=== PATIENT | male | born 1955 | race Caucasian/White ===

== ENCOUNTER 2018-04-12 06:55 | Day surgery (SDC) | payer BC ==
[~2018-04-12] VITALS: Ht 182.9 cm; Wt 85.2 kg
[2018-04-12 07:20] VITALS: BP 159/99
[2018-04-12] MEDS ORDERED: normal saline 1000ml 1,000 ML IV PRN (07:20)
[2018-04-12] MEDS ORDERED: HYDR-565 PO (07:23)
[2018-04-12] MEDS ORDERED: ALBU18HF2 INH (07:23)
[2018-04-12] MEDS ORDERED: ACET-75 PO (07:23)
[2018-04-12] MEDS ORDERED: ATOR10TA PO (07:23)
[2018-04-12 07:56] LABS: BASOPHILS % (AUTO) 0.6 % (0-1); EOSINOPHILS # (AUTO) 0.2 X10'3 (0-0.9); EOSINOPHILS % (AUTO) 3.4 % (0-6); HEMATOCRIT 42.1 % (42.0-52.0); LYMPHOCYTES # (AUTO) 0.6 X10'3 (1.1-4.8); LYMPHOCYTES % (AUTO) 8.9 % (21-51); MEAN CORPUSCULAR HEMOGLOBIN 28.4 PG (27.0-31.0); MEAN CORPUSCULAR HGB CONC 33.2 % (33.0-36.5); MEAN CORPUSCULAR VOLUME 85.6 FL (78-98); MEAN PLATELET VOLUME 6.3 FL (7.4-10.4); MONOCYTES # (AUTO) 0.5 X10'3 (0-0.9); MONOCYTES % (AUTO) 7.3 % (2-12); NEUTROPHILS # (AUTO) 5.8 X10'3 (1.8-7.7); NEUTROPHILS % (AUTO) 79.8 % (42-75); PLATELET COUNT 337 X10'3 (140-440); RED BLOOD COUNT 4.91 X10'6 (4.70-6.10); RED CELL DISTRIBUTION WIDTH 19.9 % (11.5-14.5); WHITE BLOOD COUNT 7.3 X10'3 (4.5-11.0)
[2018-04-12 08:07] LABS: ALBUMIN 3.5 G/DL (3.4-5.0); ANION GAP 9 (8-16); BLOOD UREA NITROGEN 23 MG/DL (7-18); CALCIUM 9.2 MG/DL (8.5-10.1); CHLORIDE 106 MMOL/L (99-107); GLUCOSE 106 MG/DL (70-104); POTASSIUM 4.7 MMOL/L (3.5-5.1); SODIUM 140 MMOL/L (135-145); TOTAL CARBON DIOXIDE 24.8 MMOL/L (24-32); eGFR 75 ML/MIN
[2018-04-12 08:16] LABS: PROTHROMBIN TIME 10.7 SECONDS (9.0-12.0)
[2018-04-12 09:07] LABS: ANISOCYTOSIS 2+; PLATELET ESTIMATE NORMAL
== END 2018-04-12 09:00 | disposition home or self-care (01) ==
LOC: SSTAY O 06:55
PROVIDERS: ATTEND Radiology Diagnostic Radiology
DX: C34.12 Malignant neoplasm of upper lobe, left bronchus or lung (principal); Z53.8 Procedure and treatment not carried out for other reasons; E78.5 Hyperlipidemia, unspecified; J43.9 Emphysema, unspecified; Z88.0 Allergy status to penicillin; Z79.891 Long term (current) use of opiate analgesic; Z87.891 Personal history of nicotine dependence; Z72.89 Other problems related to lifestyle; Z90.49 Acquired absence of other specified parts of digestive tract; Z90.89 Acquired absence of other organs; Z98.890 Other specified postprocedural states; Z79.899 Other long term (current) drug therapy
CPT/HCPCS: 36415; 80048; 85025; 85610; J7030

== ENCOUNTER 2018-06-12 08:34 | Day surgery (SDC) | payer BC ==
[2018-06-12] VITALS (14 sets, daily range): BP systolic 141–170; BP diastolic 75–97
[~2018-06-12] VITALS: Ht 185.4 cm; Wt 92.9 kg
[~2018-06-12 08:34] MED LIST: ACET-75 PO; ALBU18HF2 INH; ATOR10TA PO; HYDR-4353 PO
[2018-06-12] MEDS ORDERED: normal saline 1000ml 1,000 ML IV PRN (08:55)
[2018-06-12] MEDS ORDERED: normal saline 1000ml 1,000 ML IV SCH (10:59)
[2018-06-12] MEDS ORDERED: midazolam 2 mg/2 ml injection IV PRN (11:00)
[2018-06-12] MEDS ORDERED: fentaNYL/PF 50MCG/1 ML 2ML syringe IV PRN (11:00)
[2018-06-12] MEDS ORDERED: fentaNYL/PF 50MCG/1 ML 2ML syringe ONE ×2 (11:02→12:48)
[2018-06-12] MEDS ORDERED: midazolam 2 mg/2 ml injection ONE ×2 (11:02→12:48)
[2018-06-12 11:18] LABS: BASOPHILS % (AUTO) 0.3 % (0-1); EOSINOPHILS # (AUTO) 0.1 X10'3 (0-0.9); EOSINOPHILS % (AUTO) 1.4 % (0-6); LYMPHOCYTES # (AUTO) 0.6 X10'3 (1.1-4.8); LYMPHOCYTES % (AUTO) 7.6 % (21-51); MEAN CORPUSCULAR HEMOGLOBIN 29.1 PG (27.0-31.0); MEAN CORPUSCULAR HGB CONC 33.4 % (33.0-36.5); MEAN PLATELET VOLUME 6.6 FL (7.4-10.4); MONOCYTES # (AUTO) 0.5 X10'3 (0-0.9); MONOCYTES % (AUTO) 5.8 % (2-12); NEUTROPHILS # (AUTO) 6.9 X10'3 (1.8-7.7); NEUTROPHILS % (AUTO) 84.9 % (42-75); PRE OP HEMATOCRIT 44.5 % (42.0-52.0); PRE OP HEMOGLOBIN 14.9 g/dL (14.0-17.9); PRE OP PLATELET COUNT 329 X10'3 (140-440); RED BLOOD COUNT 5.11 X10'6 (4.70-6.10); RED CELL DISTRIBUTION WIDTH 14.2 % (11.5-14.5)
[2018-06-12] MEDS ORDERED: LIDOcaine 1% (10mg/ml) 2ml vial ONE (11:20)
[2018-06-12 11:29] LABS: ALBUMIN 3.7 G/DL (3.4-5.0); ANION GAP 12 (8-16); BLOOD UREA NITROGEN 19 MG/DL (7-18); BUN/CREATININE RATIO 20.2 (5.4-32.0); CALCIUM 9.4 MG/DL (8.5-10.1); CHLORIDE 107 MMOL/L (99-107); CREATININE 0.94 MG/DL (0.60-1.10); GLUCOSE 109 MG/DL (70-104); POTASSIUM 4.4 MMOL/L (3.5-5.1); SODIUM 144 MMOL/L (135-145); TOTAL CARBON DIOXIDE 25.3 MMOL/L (24-32); eGFR 81 ML/MIN
[2018-06-12 11:34] LABS: INR 1.1 INR; PROTHROMBIN TIME 11.3 SECONDS (9.0-12.0)
[2018-06-12] MEDS ORDERED: LIDOcaine 1%/PF 5ML 10 MG/ML VIAL ONE (12:47)
== END 2018-06-12 15:45 | disposition home or self-care (01) ==
LOC: SSTAY O 08:34
PROVIDERS: ATTEND Radiology Vascular & Interventional Radiology
DX: C34.11 Malignant neoplasm of upper lobe, right bronchus or lung (principal); J95.811 Postprocedural pneumothorax; E78.5 Hyperlipidemia, unspecified; J43.9 Emphysema, unspecified; Z88.0 Allergy status to penicillin; Z88.4 Allergy status to anesthetic agent; Z79.891 Long term (current) use of opiate analgesic; Z90.49 Acquired absence of other specified parts of digestive tract; Z90.89 Acquired absence of other organs; Z85.118 Personal history of other malignant neoplasm of bronchus and lung; Z87.891 Personal history of nicotine dependence; Z72.89 Other problems related to lifestyle; Z98.890 Other specified postprocedural states; Z79.899 Other long term (current) drug therapy
CPT/HCPCS: 32405; 32557; 36415; 71045; 77012; 80048; 85025; 85610; 99152; 99153; C2613; J2001; J2250; J3010; J3490; J7030

== ENCOUNTER 2018-06-13 10:01 | Day surgery (SDC) | payer BC ==
[2018-06-13 10:30] VITALS: BP 146/86
[2018-06-13 10:32] VITALS: BP 156/93
[2018-06-13 10:35] VITALS: BP 159/95
[2018-06-13 10:40] VITALS: BP 136/90
== END 2018-06-13 10:50 | disposition home or self-care (01) ==
LOC: SSTAY O 10:01
PROVIDERS: ATTEND Nurse Practitioner Family
DX: Z46.82 Encounter for fitting and adjustment of non-vascular catheter (principal); R91.8 Other nonspecific abnormal finding of lung field; Z88.0 Allergy status to penicillin; Z88.4 Allergy status to anesthetic agent; Z89.022 Acquired absence of left finger(s); Z79.891 Long term (current) use of opiate analgesic; Z87.891 Personal history of nicotine dependence; Z72.89 Other problems related to lifestyle; Z85.118 Personal history of other malignant neoplasm of bronchus and lung; Z79.899 Other long term (current) drug therapy; Z98.890 Other specified postprocedural states
CPT/HCPCS: 71045; 99212